=== PATIENT | male | born 1990 | race Caucasian/White ===

== ENCOUNTER 2017-10-03 17:51 | Emergency (ER) | payer MEDICAID ==
[~2017-10-03] VITALS: Ht 180.3 cm; Wt 93.2 kg
[~2017-10-03 17:51] MED LIST: NOCURR
[2017-10-03 22:08] VITALS: BP 120/69
[2017-10-03] MEDS ORDERED: SULFAMETHOX/TRIMETH DS 800-160 MG/TABLET PO ONE (22:15)
[2017-10-03 22:19] LABS: APPEARANCE,URINE CLEAR (CLEAR); BILIRUBIN,URINE NEGATIVE (NEGATIVE); GLUCOSE, URINE (UA) >=1000 mg/dL (NEGATIVE); KETONES,URINE NEGATIVE (NEGATIVE); LEUKOCYTE ESTERASE ,URINE NEGATIVE (NEGATIVE); NITRATE,URINE NEGATIVE (NEGATIVE); OCCULT BLOOD,URINE NEGATIVE (NEGATIVE); PROTEIN,URINE POS 1+ (NEGATIVE)
[2017-10-03 22:36] LABS: RBC,URINE 0-2 /HPF (0-2)
[2017-10-03 22:37] LABS: BACTERIA,URINE None Seen /HPF (None Seen); SQUAMOUS EPITHELIAL CELL,UR Few /LPF (None Seen)
== END 2017-10-03 22:30 | disposition home or self-care (01) ==
LOC: EMS 17:52
DX: N49.2 Inflammatory disorders of scrotum (principal); F41.9 Anxiety disorder, unspecified
CPT/HCPCS: 87070; 87086; 87147; 87205; 99284

== ENCOUNTER 2023-12-31 07:29 | Emergency (ER) | payer MEDICAID ==
[~2023-12-31] VITALS: Ht 167.6 cm; Wt 68.2 kg
[~2023-12-31 07:29] MED LIST changes: +INSLAN SQ; +INSU100V SQ; -NOCURR; +SULF1TAB42 PO
[2023-12-31 07:32] VITALS: TEMP 98.4
[2023-12-31 07:50] LABS: COVID AG,FIA SOURCE NASAL SWAB
[2023-12-31 08:12] LABS: SARS-COV2 (COVID) ANTIGEN,FIA Negative (Negative)
[2023-12-31 08:13] LABS: BASOPHILS % (AUTO) 0.5 % (0.0-2.0); EOSINOPHILS % (AUTO) 2.5 % (1.0-6.0); HEMATOCRIT 46.5 % (41-53); HEMOGLOBIN 16.2 g/dL (13.5-17.5); LYMPHOCYTES # (AUTO) 1.7 K/uL (1.0-4.8); LYMPHOCYTES % (AUTO) 21.9 % (22.0-44.0); MEAN CORPUSCULAR HEMOGLOBIN 32.1 pg (26.0-34.0); MEAN CORPUSCULAR HGB CONC 34.9 G/dL (31.0-37.0); MEAN CORPUSCULAR VOLUME 92 fL (80-100); MONOCYTES # (AUTO) 0.6 K/uL (0.1-1.0); MONOCYTES % (AUTO) 7.4 % (2.0-9.0); NEUTROPHILS # (AUTO) 5.3 K/uL (1.8-7.7); NEUTROPHILS % (AUTO) 67.7 % (40.0-70.0); PLATELET COUNT (AUTO) 266 K/uL (150-450); RED BLOOD CELL COUNT(AUTO) 5.05 MIL/uL (4.50-5.90); RED CELL DISTRIBUTION WIDTH 12.1 % (11.5-14.5); WHITE BLOOD COUNT (AUTO) 7.9 K/uL (4.5-11.0)
[2023-12-31 08:15] LABS: ANION GAP 3 mmol/L (8-16); CALCIUM, TOTAL 9.3 mg/dL (8.8-10.5); CARBON DIOXIDE 33 mmol/L (22-29); CHLORIDE 101 mmol/L (98-107); CREATININE 0.83 mg/dL (0.60-1.30); GLOMERULAR FILTR. RATE CALC > 60 mL/min (>60); GLUCOSE,RANDOM 268 mg/dL (70-110); POTASSIUM 4.5 mmol/L (3.5-5.1); SODIUM SERUM 137 mmol/L (136-145); UREA NITROGEN, BLOOD 18 mg/dL (7-18)
[2023-12-31 08:16] LABS: INFLUENZA TYPE A NEGATIVE FOR TYPE A (NEGATIVE); INFLUENZA TYPE B NEGATIVE FOR TYPE B (NEGATIVE)
[2023-12-31] MEDS: KETOROLAC TROMETHAMINE 60 MG/2 ML VIAL IM ONE (08:59)
[2023-12-31] MEDS ORDERED: AMOX1TAB15 PO (09:12)
[2023-12-31] MEDS ORDERED: NYST15OI TP ×2 (09:12→17:58)
[2023-12-31 09:30] VITALS: BP 132/86; PULSE 90; RESP 18
== END 2023-12-31 09:55 | disposition home or self-care (01) ==
LOC: EMS 07:29
DX: N48.1 Balanitis (principal); R07.89 Other chest pain; R05.9 Cough, unspecified; Z79.4 Long term (current) use of insulin; Z20.822 Contact with and (suspected) exposure to COVID-19
CPT/HCPCS: 99284; 71045; 87426; 80048; 85025; 87804; 36415; 96372; J1885